=== PATIENT | female | born 1995 | race Caucasian/White ===

== ENCOUNTER 2023-03-08 15:02 | Inpatient (IN) | payer BC ==
[2023-03-08 15:35] VITALS: BMI 32.5
[2023-03-08 16:15] LABS: Creatinine, Urine 58.34 mg/dL (47-110); Protein, Urine Random Quant Less than 10 mg/dL (1-14)
[2023-03-08 16:32] LABS: #Basophils 0.1 10x3/uL (0.0-0.2); #Eosinphils 0.1 10x3/uL (0.0-0.5); #Monocytes 0.9 10x3/uL (0.0-1.1); #Neutrophils 9.2 10x3/uL (1.5-8.4); %Basophils 0.4 % (0.0-2.0); %Eosinophils 0.5 % (0.0-6.0); %Lymphocytes 13.3 % (18.0-47.0); %Monocytes 7.6 % (0.0-10.0); %Neutrophils 76.9 % (40.0-75.0); Hemoglobin 11.6 g/dL (12.0-15.5); Mean Corpuscular Hemoglobin 28.7 pg (27.0-33.0); Mean Corpuscular Volume 86.9 fl (81.6-98.3); Mean Platelet Volume 10.5 fl (7.4-10.4); Platelet Count 201 10x3/uL (150-450); RBC Distribution Width 13.8 % (11.5-14.5); Red Blood Cell (RBC) Count 4.04 10x6/uL (3.90-5.03)
[2023-03-08 16:46] LABS: ALT (SGPT) 8 U/L (8-55); AST (SGOT) 16 U/L (5-34); Albumin 3.2 g/dL (3.5-5.0); Alkaline Phosphatase 191 U/L (40-110); Anion Gap 15 mmol/L (10-20); BUN (Urea Nitrogen) 7 mg/dL (7.0-18.7); Bilirubin, Total 0.6 mg/dL (0.2-1.2); Calc. Creatinine Clearance 157 mL/min (70-130); Calcium 8.4 mg/dL (7.8-10.44); Carbon Dioxide 20 mmol/L (22-29); Chloride 104 mmol/L (98-107); Estimated GFR 116; Globulin 3.1 g/dL (2.4-3.5); Glucose 149 mg/dL (70-105); Potassium 3.7 mmol/L (3.5-5.1); Protein, Total 6.3 g/dL (6.0-8.3); Sodium 135 mmol/L (136-145)
[2023-03-08] MEDS ORDERED: Acetaminophen 500 MG TAB PO PRN (17:02)
[2023-03-08] MEDS ORDERED: hydrALAZINE 20 MG/ML VIAL SLOW IVP PRN (17:02)
[2023-03-08] MEDS ORDERED: Lidocaine 1% (PF) 30 ML VIAL SC PRN (17:02)
[2023-03-08] MEDS ORDERED: Diphenoxylate HCl/Atropine Tablet PO PRN (17:02)
[2023-03-08] MEDS ORDERED: Butorphanol Tartrate 1 MG/ML VIAL SLOW IVP PRN (17:02)
[2023-03-08] MEDS ORDERED: Ibuprofen 800 MG TAB PO PRN (17:02)
[2023-03-08] MEDS ORDERED: Misoprostol 200 MCG TAB PR PRN (17:02)
[2023-03-08] MEDS ORDERED: Tranexamic Acid 1,000 MG/10 ML VIAL IVP PRN (17:02)
[2023-03-08] MEDS ORDERED: Carboprost 250 MCG/ML AMP IM PRN (17:02)
[2023-03-08] MEDS ORDERED: Promethazine HCl 25 MG/ML VIAL IM PRN (17:02)
[2023-03-08] MEDS ORDERED: Ondansetron PF 4 MG/2 ML Vial IVP PRN (17:02)
[2023-03-08] MEDS ORDERED: NS w/ Oxytocin 30 units 500 ML IV SCH ×2 (17:15)
[2023-03-08] MEDS ORDERED: Lactated Ringer's 1,000 ML IV SCH (17:15)
[2023-03-08] MEDS ORDERED: Penicillin G Potassium 5 MILL.UNITS in Sodium Chloride 0.9% 100 ML IVPB SCH (17:15)
[2023-03-08 18:20] LABS: HBSAg Index 0.18 S/CO (0-0.99); Hep B Surf Ag - L&D Non-Reactive S/CO (NonReactive); Syphilis Antibody Nonreactive (Nonreactive); Syphilis Antibody Index 0.05 S/CO (<1.00 Non-Reactive)
[2023-03-08] MEDS: Penicillin G 2.5 MILL.units 2.5 MILL.UNITS in Premix Bag 1 BAG IVPB SCH (21:19)
[2023-03-09] MEDS ORDERED: Fioricet 325/50/40 mg Tablet PO SCH (02:15)
[2023-03-09] MEDS ORDERED: Boostrix 0.5 ML (Tdap) VIAL (>/=7 yrs of age) IM ONE (02:42)
[2023-03-09] MEDS ORDERED: hydrALAZINE 20 MG/ML VIAL SLOW IVP PRN (02:42)
[2023-03-09] MEDS ORDERED: Milk Of Magnesia 30 ML UDCUP PO PRN (02:42)
[2023-03-09] MEDS ORDERED: Bisacodyl 10 MG SUPP PR PRN (02:42)
[2023-03-09] MEDS: Penicillin G 2.5 MILL.units 2.5 MILL.UNITS in Premix Bag 1 BAG IVPB SCH (05:22)
[2023-03-09] MEDS: Ibuprofen 800 MG TAB PO SCH ×3 (07:16→21:34)
[2023-03-09] MEDS: Ferrous Sulfate 325 MG TAB PO SCH ×2 (08:15→15:22)
[2023-03-09] MEDS: Docusate 100 MG CAP PO SCH ×2 (08:15→21:34)
[2023-03-10 04:36] LABS: #Basophils 0.1 10x3/uL (0.0-0.2); #Eosinphils 0.2 10x3/uL (0.0-0.5); #Monocytes 1.2 10x3/uL (0.0-1.1); #Neutrophils 8.9 10x3/uL (1.5-8.4); %Basophils 0.8 % (0.0-2.0); %Eosinophils 1.4 % (0.0-6.0); %Lymphocytes 18.2 % (18.0-47.0); %Monocytes 9.6 % (0.0-10.0); %Neutrophils 68.9 % (40.0-75.0); Hemoglobin 11.7 g/dL (12.0-15.5); Mean Corpuscular HGB CONC 33.3 g/dL (32.0-36.0); Mean Corpuscular Hemoglobin 28.9 pg (27.0-33.0); Mean Corpuscular Volume 86.7 fl (81.6-98.3); Mean Platelet Volume 10.3 fl (7.4-10.4); Platelet Count 217 10x3/uL (150-450); RBC Distribution Width 13.7 % (11.5-14.5); Red Blood Cell (RBC) Count 4.05 10x6/uL (3.90-5.03); White Blood Cell (WBC) Count 12.9 10x3/uL (3.5-10.5)
[2023-03-10] MEDS: Ibuprofen 800 MG TAB PO SCH (06:12)
[2023-03-10 07:45] VITALS: BP 106/61; TEMP 98
== END 2023-03-10 11:20 | disposition home or self-care (01) | DRG 807 ==
LOC: CSHLD/OP 15:02 → CSHLD 16:31 → CSHPP 03-09 02:47
PROVIDERS: ADMIT Obstetrics & Gynecology; ATTEND Obstetrics & Gynecology
PROC: 10E0XZZ Delivery of Products of Conception, External Approach (ICD-10-PCS; principal; 2023-03-09)
PROC: 3E033VJ Introduction of Other Hormone into Peripheral Vein, Percutaneous Approach (ICD-10-PCS; 2023-03-09)
PROC: 10907ZC Drainage of Amniotic Fluid, Therapeutic from Products of Conception, Via Natural or Artificial Opening (ICD-10-PCS; 2023-03-09)
PROC: 3E03329 Introduction of Other Anti-infective into Peripheral Vein, Percutaneous Approach (ICD-10-PCS; 2023-03-09)
DX: O13.4 Gestational [pregnancy-induced] hypertension without significant proteinuria, complicating childbirth (principal); Z37.0 Single live birth; O99.824 Streptococcus B carrier state complicating childbirth; O75.89 Other specified complications of labor and delivery; R51.9 Headache, unspecified; O99.284 Endocrine, nutritional and metabolic diseases complicating childbirth; E03.9 Hypothyroidism, unspecified; Z3A.38 38 weeks gestation of pregnancy
CPT/HCPCS: 36415; 80053; 82570; 84156; 85025; 86780; 86850; 86900; 86901; 87340; 99285; J2540; J2590; J3490